=== PATIENT | female | born 1990 | race Caucasian/White ===

== ENCOUNTER 2016-05-17 17:11 | Emergency (ER) | payer OTHER ==
[~2016-05-17] VITALS: Ht 170.2 cm; Wt 68.0 kg
[~2016-05-17 17:11] MED LIST: AMOX1TAB61 PO; HYDR-971 PO
--- NOTE | 2016-05-17 17:53 | PHYS DOC ---
Past Medical History Past Medical History: No Pertinent History Past Surgical History: No Surgical History Alcohol Use: Occasionally Drug Use: None Adult General Chief Complaint Chief Complaint: ANIMAL BITE [facility] HPI Patient is a 25 year old female presents emergency department stating that she works at a [employer]. She states that she had just finished working with a dog that had surgery as she was taking a [place] catheter out of the patient when the dog bit her. She has a puncture juliet on her left thumb. She has puncture juliet and scratch jolley on her right forearm. Patient states she vigorously scrubbed the area and irrigated the area at work. Patient states that her tetanus immunization is up-to-date. She states that the animals immunizations are up-to-date as well. Patient has a 0.25 cm puncture wound noted on the left thumb. She has multiple scratches noted on the forearm. Review of Systems Review of Systems Constitutional: Denies fever or chills [] Eyes: Denies change in visual acuity, redness, or eye pain [] HENT: Denies nasal congestion or sore throat [] Respiratory: Denies cough or shortness of breath [] Cardiovascular: No additional information not addressed in HPI [] GI: Denies abdominal pain, nausea, vomiting, bloody stools or diarrhea [] : Denies dysuria or hematuria [] Musculoskeletal: Denies back pain or joint pain [] Integument: Denies rash or skin lesions. Complaint of puncture wound to the left thumb, puncture wound to the right forearm as well as multiple scratches. Neurologic: Denies headache, focal weakness or sensory changes [] Allergies Allergies Allergies Coded Allergies Type Severity Reaction Last Updated Verified naproxen Allergy Intermediate Nausea and Vomiting 05/17/16 Yes Uncoded Allergies Type Severity Reaction Last Updated Verified BEE STINGS Allergy Intermediate SWELLING 12/24/15 Physical Exam Physical Exam Constitutional: Well developed, well nourished, no acute distress, non-toxic appearance. [] HENT: Normocephalic, atraumatic, bilateral external ears normal, oropharynx moist, no oral exudates, nose normal. [] Eyes: PERRLA, EOMI, conjunctiva normal, no discharge. [] Neck: Normal range of motion, no tenderness, supple, no stridor. [] Cardiovascular:Heart rate regular rhythm, no murmur [] Lungs & Thorax: Bilateral breath sounds clear to auscultation [] Skin: Warm, dry, no erythema, no rash. Patient with 0.25 puncture wound to the left thumb that appears to have bleeding controlled. Patient with multiple scratch areas of a puncture wound noted on the right forearm. Bleeding appears to be controlled there as well. Back: No tenderness Extremities: No tenderness, no cyanosis, no clubbing, ROM intact, no edema. Patient with full range of motion of all the extremities. Equal strength bilaterally to the hands. Peripheral pulses bilateral radius 2+. Neurologic: Alert and oriented X 3, normal motor function, normal sensory function, no focal deficits noted. [] Psychologic: Affect normal, judgement normal, mood normal. [] Current Patient Data Vital Signs Vital Signs Date Time Temp Pulse Resp B/P Pulse Ox O2 Delivery O2 Flow Rate FiO2 05/17/16 17:59 98.7 82 16 97 Room Air 98.7 EKG EKG [] Radiology/Procedures Radiology/Procedures [] Course & Med Decision Making Course & Med Decision Making Pertinent Labs and Imaging studies reviewed. (See chart for details) Since x-ray was negative for any bony abnormalities noted no teeth noted within the skin. Patient will be discharged home with Augmentin. Recommended keeping the area clean and dry and clean the site twice daily with soap and water and apply antibiotic ointment. Tylenol or ibuprofen for pain and discomfort. Since symptoms to return back to emergency department as been provided. Patient was also encouraged to follow-up in 3-5 days for recheck Dragon Disclaimer Dragon Disclaimer This electronic medical record was generated, in whole or in part, using a voice recognition dictation system. Departure Departure Impression: Primary Impression: Dog bite of left thumb Additional Impression: Dog bite of right forearm Disposition: 01 HOME, SELF-CARE Condition: STABLE Referrals: LIBORIO AVENDANO PA-C (PCP) Patient Instructions: Animal Bite, [id number] Additional Instructions: Activity as tolerated. Ice packs to the areas of discomfort. Keep the areas clean and dry. Clean the sites with soap and water twice a day. Medication as prescribed. Tylenol or ibuprofen for pain and discomfort. Follow-up with your primary care physician in 3-5 days. Return back to emergency prior signs symptoms of become worse. Scripts Amoxicillin/Potassium Clav (Augmentin 875-125 Tablet)1 Each Tablet1 Tab PO BID # 20 TAB Prov:SOREN MORALEZ NP 05/17/16 Problem Qualifiers SOREN MORALEZ NP May 17, 2016 17:53
[2016-05-17 17:59] VITALS: BP 124/70
[2016-05-17] MEDS ORDERED: AMOX1TAB61 PO (18:34)
--- NOTE | 2016-05-18 08:11 | RAD ---
Right forearm, 2 views, 05/17/2016: History: Animal bite, trauma No fracture or bony abnormality is detected. Mild subcutaneous edema is noted. IMPRESSION: No acute bony abnormality is detected. Left thumb, 3 views, 05/17/2016: No fracture or dislocation is identified. The soft tissues are unremarkable.
== END 2016-05-17 18:51 | disposition home or self-care (01) ==
LOC: ER 17:11
DX: S61.052A Open bite of left thumb without damage to nail, initial encounter (principal); S51.851A Open bite of right forearm, initial encounter; Z88.8 Allergy status to other drugs, medicaments and biological substances; Z91.030 Bee allergy status; W54.0XXA Bitten by dog, initial encounter; Y93.89 Activity, other specified; Y92.89 Other specified places as the place of occurrence of the external cause; Y99.8 Other external cause status
CPT/HCPCS: 73090; 73140; 99284